=== PATIENT | female | born 1985 | race Caucasian/White ===

== ENCOUNTER 2021-06-21 22:36 | Inpatient (IN) | payer BC, SELFPAY ==
[2021-06-21 22:53] VITALS: BP 95/63; PULSE 120; RESP 18; TEMP 36.9; O2SAT 92; BMI 24.0
[2021-06-21 23:12] VITALS: BP 99/65; PULSE 118; RESP 18; O2SAT 92
[2021-06-21 23:50] VITALS: O2SAT 96
--- NOTE | 2021-06-21 23:52 | ECG_ITS ---
[facility] Test Date: 2021-06-22 Pat Name: Tiffanie Vallejo Department: Room: Gender: Female Certified Surgical Technician: : 1985 Requested By: Austin Greene Order Number: [id number] Diana MD: Hilario Solis M.D. Measurements Intervals [place] Rate: 118 P: 38 VT: 121 QRS: 44 QRSD: 77 T: 32 QT: 312 QTc: 438 Interpretive Statements SINUS TACHYCARDIA ABNORMAL RHYTHM ECG No previous ECG available for comparison Electronically Signed On 06-23-2021 16:22:48 CDT by Hilario Solis M.D. [email or web address].[employer]/store/OV/[id number]
--- NOTE | 2021-06-21 23:52 | XRR_ITS ---
PROCEDURE INFORMATION: Exam: XR Chest Exam date and time: 06/21/2021 11:52 PM Age: 36 years old Clinical indication: Shortness of breath; Additional info: SOB TECHNIQUE: Imaging protocol: XR of the chest. Views: 1 view. COMPARISON: No relevant prior studies available. FINDINGS: Tubes, catheters and devices: Right-sided PICC line with tip approaching the atrial caval junction. Lungs: Large right pleural effusion with right mid to lower lung field infiltrate. Pleural spaces: See Lungs finding. Heart/Mediastinum: Unremarkable. No cardiomegaly. Bones/joints: Unremarkable. XR/XR chest 1V portable [id number] IMPRESSION: 1. Large right pleural effusion with right mid to lower lung field infiltrate. 2. Right-sided PICC line with tip approaching the atrial caval junction.
[2021-06-22] VITALS (13 sets, daily range): BP systolic 83–108; BP diastolic 48–72; PULSE 95–116; RESP 16–32; TEMP 36.7–37.7; O2SAT 92–97
--- NOTE | 2021-06-22 00:03 | W.ED.COVID ---
HPI - COVID General: Chief Complaint: COVID symptoms Stated Complaint: sob, possible pneumonia,covid positive Time Seen by Provider: 06/21/21 23:12 Triage information: Has fever, cough or shortness of breath. Exposure to COVID + person last 14 days History of Present Illness: HPI Narrative: 36-year-old female, with known COVID-19. She presents with a PICC line in her right arm. She says that she has been to the hospital in [facility], and left the ER there once, she then presented to [facility] in [place] earlier this week, and left that hospital as well. She was hospitalized 2 to 3 days ago again at [facility], and left there yesterday. She reports right-sided back and chest pain, shortness of breath, and some continued cough. Her last fever was 3 to 4 days ago. She is on day 12-14 of symptoms. MD complaint: known COVID positive Prior covid testing: yes, results known COVID 19 common symptoms: positive cough, dyspnea, fatigue, body aches, headache(s), nasal congestion, nausea and vomiting (Now resolved) COVID 19 other sytmptoms: positive chest pain; negative requiring oxygen, respiratory distress or confusion Onset (ago): day(s) (12-14) COVID Results: No Data to Display Review of Systems Const: Reports: body aches and fatigue ENMT: Reports: nasal congestion Card: Reports: chest pain Resp: Reports: dyspnea GI: Reports: nausea and vomiting (Now resolved) Neuro: Reports: headache(s); Denies: confusion Physical Exam Const: COMMON NORMALS: patient oriented x3 and alert GENERAL APPEARANCE: cooperative, anxious and ill appearing HENMT: COMMON NORMALS: normocephalic HEAD & SCALP: normocephalic FACE & SINUS: sinuses nontender Eye: COMMON NORMALS: Equal, round and reactive pupils present and EOMs intact bilaterally PUPIL: Yes Equal, round and reactive pupils present Chest: COMMONS NORMALS: normal inspection of the chest Resp: COMMON NORMALS: normal respiratory effort, No use of accessory muscles and clear to auscultation bilaterally AUSCULTATION: clear to auscultation bilaterally Cardio: COMMON NORMALS: regular rhythm RATE: tachycardic RHYTHM: regular rhythm HEART SOUNDS: no murmurs Neuro: COMMON NORMALS: patient oriented x3 SENSORIUM/ORIENTATION: Yes alert Course Consultations: Consultation #1: david Vital Signs: Vital signs: Vital Signs Temperature 99.8 F H 06/22/21 02:00 Pulse Rate 111 H 06/22/21 02:00 Respiratory Rate 16 06/22/21 03:43 Blood Pressure 93/62 06/22/21 02:00 Pulse Oximetry 97 06/22/21 03:43 MDM - COVID MDM Narrative: Medical decision making narrative: 36-year-old female with right-sided pleuritic chest pain, continued fever, tachycardia. She appears quite ill. Her white blood cell count is 25.6. Her CRP is 230. She is tachycardic in the 120s. She is febrile. She meets sepsis criteria. She has a dense lower lobe right pneumonia with left lower lobe pneumonia. CTA confirms. She did test positive for Covid, but this was 12 days ago. This appears to be a consolidative bacterial type pneumonia that likely came as a superinfection. She is received Levaquin and vancomycin here, as she has been an inpatient for a couple of days at a different facility. She will be admitted for pneumonia with sepsis. Lab Data: Labs: Lab Results 06/21/21 06/21/21 06/21/21 Range/Units 00:21 00:21 00:21 WBC 25.6 H (4.0-10.0) 10^3/ uL RBC 3.58 L (4.1-5.3) 10^6/u L Hgb 10.2 L (11.5-15.3) g/dL Hct 30.4 L (37.0-47.0) % MCV 84.9 (81-99) fl MCH 28.5 (28.0-34.0) pg MCHC 33.6 (30.0-36.0) g/dL RDW 13.5 (12.1-15.1) % Plt Count 308 (130-400) 10^3/c mm MPV 10.2 (7.4-10.4) fL Neut % (Auto) 89.2 % Lymph % (Auto) 3.8 % Warren % (Auto) 3.2 % Eos % (Auto) 0.1 % Baso % (Auto) 0.0 % Neut # (Auto) 22.84 H (1.8-7.7) 10^3/u L Lymph # (Auto) 1.0 (0.8-4.8) 10^3/u L Warren # (Auto) 0.8 (0.2-0.9) 10^3/u L Eos # (Auto) 0.0 (0.0-0.8) 10^3/u L Baso # (Auto) 0.0 (0.0-0.1) 10^3/u L Nucleated RBC % (a uto) 0 % Nucleated RBCs # 0.0 /100WBC D-Dimer 2.33 H (0-0.59) ug/mIFE U Sodium 134 L (136-145) mmol/L Potassium 4.1 (3.5-5.1) mmol/L Chloride 101 (98-107) mmol/L Carbon Dioxide 22 (22-29) mmol/L Anion Gap 15.1 (5-19) BUN 12 (6-20) mg/dL Creatinine 0.4 L (0.5-0.9) mg/dL GFR Calculation 181.6 H (90-130) mL/min Glucose 106 (65-115) mg/dL Calculated Osmolal ity 278 L (285-295) mOsm/k g Lactic Acid (0.5-2.2) mmol/L Calcium 7.4 L (8.5-10.5) mg/dL Total Bilirubin 1.4 H (0.15-1.2) mg/dL AST 44 H (0-32) U/L ALT 25 (0-33) U/L Alkaline Phosphata se 99 (35-105) IU/L Lactate Dehydrogen ase 484 H (135-214) U/L C-Reactive Protein 232.6 H (0.0-4.9) mg/L NT-Pro-B Natriuret Pep 4533 H (0-125) pg/mL Total Protein 5.4 L (6.6-8.7) g/dL Albumin 2.3 L (3.5-5.2) g/dL Globulin 3.1 (1.3-4.6) g/dL Procalcitonin 3.90 H (0-0.5) ng/mL HCG, Qual (Negative) 06/21/21 06/22/21 Range/Units 00:21 00:21 WBC (4.0-10.0) 10^3/ uL RBC (4.1-5.3) 10^6/u L Hgb (11.5-15.3) g/dL Hct (37.0-47.0) % MCV (81-99) fl MCH (28.0-34.0) pg MCHC (30.0-36.0) g/dL RDW (12.1-15.1) % Plt Count (130-400) 10^3/c mm MPV (7.4-10.4) fL Neut % (Auto) % Lymph % (Auto) % Warren % (Auto) % Eos % (Auto) % Baso % (Auto) % Neut # (Auto) (1.8-7.7) 10^3/u L Lymph # (Auto) (0.8-4.8) 10^3/u L Warren # (Auto) (0.2-0.9) 10^3/u L Eos # (Auto) (0.0-0.8) 10^3/u L Baso # (Auto) (0.0-0.1) 10^3/u L Nucleated RBC % (a uto) % Nucleated RBCs # /100WBC D-Dimer (0-0.59) ug/mIFE U Sodium (136-145) mmol/L Potassium (3.5-5.1) mmol/L Chloride (98-107) mmol/L Carbon Dioxide (22-29) mmol/L Anion Gap (5-19) BUN (6-20) mg/dL Creatinine (0.5-0.9) mg/dL GFR Calculation (90-130) mL/min Glucose (65-115) mg/dL Calculated Osmolal ity (285-295) mOsm/k g Lactic Acid 1.3 (0.5-2.2) mmol/L Calcium (8.5-10.5) mg/dL Total Bilirubin (0.15-1.2) mg/dL AST (0-32) U/L ALT (0-33) U/L Alkaline Phosphata se (35-105) IU/L Lactate Dehydrogen ase (135-214) U/L C-Reactive Protein (0.0-4.9) mg/L NT-Pro-B Natriuret Pep (0-125) pg/mL Total Protein (6.6-8.7) g/dL Albumin (3.5-5.2) g/dL Globulin (1.3-4.6) g/dL Procalcitonin (0-0.5) ng/mL HCG, Qual Negative (Negative) COVID Results: No Data to Display Coding Level of Care Code ED Portrait Artist for Chg Fwd Exam Detailed
--- NOTE | 2021-06-22 00:11 | CTR_ITS ---
PROCEDURE INFORMATION: Exam: CTA Chest With Contrast Exam date and time: 06/22/2021 12:11 AM Age: 36 years old Clinical indication: Cough and shortness of breath; Patient HX: RT chest wall pain. Cough/sob. Covid +; Additional info: Chest pain TECHNIQUE: Imaging protocol: Computed tomographic angiography of the chest with contrast. 3D rendering (Not supervised by radiologist): MIP and/or 3D reconstructed images were created by the technologist. Radiation optimization: All CT scans at this facility use at least one of these dose optimization techniques: automated exposure control; mA and/or kV adjustment per patient size (includes targeted exams where dose is matched to clinical indication); or iterative reconstruction. Contrast material: OMNI 350; Contrast volume: 80 ml; Contrast route: INTRAVENOUS (IV); COMPARISON: CR (CHEST, ) 06/21/2021 11:57 PM RADIATION DOSE METRICS: Total DLP (mGy-cm): 484.48 FINDINGS: Pulmonary arteries: No pulmonary embolus or aortic dissection. Aorta: Unremarkable. No aortic aneurysm. No aortic dissection. Lungs: Right lower lobe lobar pneumonia with aeration only small portions of the right lower lobe. Focal prominent airspace disease in the left lower lobe consistent with [id number] left posterior lung base pneumonia. Pleural spaces: Unremarkable. No pneumothorax. No pleural effusion. Heart: Unremarkable. No cardiomegaly. No pericardial effusion. Lymph nodes: Unremarkable. No enlarged lymph nodes. Bones/joints: Unremarkable. No acute fracture. Soft tissues: Unremarkable. CT/CT angio chest PE protcl [id number] IMPRESSION: 1. Right lower lobe lobar pneumonia with aeration only small portions of the right lower lobe. 2. Focal prominent airspace disease in the left lower lobe consistent with osal-as-[id number] left posterior lung base pneumonia. 3. No pulmonary embolus or aortic dissection. Radiation Dose CTDIVOL = (mGy): DLP = 484.48 (mGy-cm)
[2021-06-22] MEDS: morphine 4 mg/mL SDV 1 mL IVP ×2 (00:15→03:43)
[2021-06-22] MEDS: sodium chloride 0.9% 1,000 ML 999 ML IV ×2 (00:25→04:17)
[2021-06-22] MEDS: levofloxacin-dextrose 5 % 750 MG/150 ML PREMIX 100 MG IV (00:31)
[2021-06-22 00:32] LABS: Eosinophils % 0.1 %; Hematocrit 30.4 % (37.0-47.0); Hemoglobin 10.2 g/dL (11.5-15.3); Lymphocytes % 3.8 %; Mean Corpuscular HGB Conc 33.6 g/dL (30.0-36.0); Mean Corpuscular Hemoglobin 28.5 pg (28.0-34.0); Mean Corpuscular Volume 84.9 fl (81-99); Mean Platelet Volume 10.2 fL (7.4-10.4); Monocytes # 0.8 10^3/uL (0.2-0.9); Monocytes % 3.2 %; Neutrophils # 22.84 10^3/uL (1.8-7.7); Neutrophils % 89.2 %; Nucleated Red Blood Cells % 0 %; Platelet Count 308 10^3/cmm (130-400); Red Blood Count 3.58 10^6/uL (4.1-5.3); Red Cell Distribution Width 13.5 % (12.1-15.1); White Blood Count 25.6 10^3/uL (4.0-10.0)
[2021-06-22 00:45] LABS: D Dimer 2.33 ug/mIFEU (0-0.59)
[2021-06-22 00:49] LABS: HCG, Serum Qual Negative (Negative)
[2021-06-22 00:53] LABS: Lactic Sepsis W/Reflex 1.3 mmol/L (0.5-2.2)
[2021-06-22 01:01] LABS: Slide Review Slide Review Perform
[2021-06-22 01:03] LABS: NT Pro B Type Natriuretic Pept 4533 pg/mL (0-125)
[2021-06-22 01:15] LABS: Alanine Aminotransferase 25 U/L (0-33); Albumin Level 2.3 g/dL (3.5-5.2); Alkaline Phosphatase 99 IU/L (35-105); Anion Gap 15.1 (5-19); Aspartate Amino Transferase 44 U/L (0-32); Blood Urea Nitrogen 12 mg/dL (6-20); C Reactive Protein 232.6 mg/L (0.0-4.9); Calcium 7.4 mg/dL (8.5-10.5); Carbon Dioxide 22 mmol/L (22-29); Chloride 101 mmol/L (98-107); Globulin 3.1 g/dL (1.3-4.6); Glomerular Filtration Rate 181.6 mL/min (90-130); Glucose 106 mg/dL (65-115); Lactate Dehydrogenase 484 U/L (135-214); Osmolality Calculated 278 mOsm/kg (285-295); Potassium 4.1 mmol/L (3.5-5.1); Sodium 134 mmol/L (136-145); Total Bilirubin 1.4 mg/dL (0.15-1.2); Total Protein 5.4 g/dL (6.6-8.7)
[2021-06-22] MEDS: iohexol 350 mg/mL 100 mL Btl IV (02:23)
--- NOTE | 2021-06-22 03:08 | PC.NURSE ---
Checked in on pt. She is sleeping comfortably in bed.
[2021-06-22] MEDS: vancomycin 1,000 MG in sodium chloride 0.9% 250 ML 250 MG IV ×2 (03:47→13:10)
--- NOTE | 2021-06-22 05:19 | PM.HP ---
Providers/Chief Complaint Admitting Physician: Shruthi Payan MD Primary Care Provider: Rahel Lopez Chief Complaint: sob, possible pneumonia,covid positive History of Present Illness Tiffanie Vallejo is a 36 year old female problems with COVID-19 pneumonia 12 days ago, she was recently admitted at hospitals in [place] hand at [facility] in [place], where she left AMA as she was distressed with inadequate pain control. She stayed in each place for 2 days is her estimate. States she did not get steroids or remdesivir, did not require oxygen. She had been having daily fever until 4 days ago . Her chief persistent complaint at this time is right-sided chest pain which brought her to the hospital. Appears to be pleuritic in nature, worsened with deep breathing. Also complains of cough with productive sputum, yellow-green in color with occasional blood streaking. Has a past history of IV drug use, uses IV morphine, last taken 1 month ago. Of note she has a PICC line in place from her last hospital admission. She is unvaccinated. Review of Systems General: Reports: 10 or more systems reviewed and unremarkable except in HPI and below Const: Denies: fever(s), chills or body aches Eyes: Denies: change in vision, blurry vision or photophobia ENMT: Reports: hoarseness; Denies: throat pain, enlarged tonsils, odynophagia or nasal congestion Card: Denies: chest pain, palpitations, irregular heart rhythm, edema, swelling of feet/ankles, lightheadedness, pre-syncope, dyspnea on exertion or orthopnea Resp: Denies: dyspnea, productive cough, non-productive cough, wheezing, stridor, pain on inspiration, change in phlegm color, hemoptysis or chest congestion GI: Denies: abdominal pain, nausea, vomiting, hematemesis, coffee ground emesis, dysphagia, heartburn, diarrhea, constipation, GI cramping, change in stool character, hematochezia or melena : Denies: flank pain, difficulty voiding, dysuria, urinary frequency, urinary urgency, urinary hesitancy or hematuria Musc: Denies: neck pain, back pain, extremity pain, joint swelling, joint warmth or deformity Neuro: Denies: headache(s), numbness in extremities, weakness in extremities, sensory changes, difficulty walking, frequent falls, dizziness, vertigo, behavioral changes, Slurred speech present or seizure-like activity Psych: Denies: anxiety, depression, suicidal ideation or homicidal ideation Endo: Denies: polyuria, polydipsia, tired all the time, cold intolerance or hot flashes [place]/Lymph: Denies: easy bruising or easy bleeding Medications/Allergies Allergies Allergy/AdvReac Type Severity Reaction Status Date / Time erythromycin base Allergy ADR-Vomitin Verified 06/22/21 02:50 g Vitals/I&O/Wt Last Vital Signs Temp 99.8 F H 06/22/21 02:00 Pulse 111 H 06/22/21 02:00 Resp 16 06/22/21 03:43 BP 93/62 06/22/21 02:00 Pulse Ox 97 06/22/21 03:43 Weight last 48 hrs Weight 63.503 kg Physical Exam Narrative: EXAM NARRATIVE: General: No acute distress, AO x3 HEENT: PERRLA, pupils bilaterally equal and reactive, pallors not present Chest: Normal vesicular breath sounds, no added sounds, equal good air entry bilaterally CVS: S1-S2 regular, no murmurs, no tachycardia, no gallops, no rubs Abdomen: Soft, nontender, no organomegaly, bowel sounds present Neuro: No focal deficits, no facial deformity, AO x3, power 5/5 in all limbs Extremities: no clubbing, edema or cyanosis Data : 06/21/21 00:21 06/21/21 00:21 Micro: Microbiology 06/22/21 00:31 Blood Culture - Preliminary Blood SPECIMEN COLLECTED 06/22/21 00:21 Blood Culture - Preliminary Blood SPECIMEN COLLECTED A&P Assessment and plan (1) Sepsis: Meets criteria by way of leukocytosis, tachycardia, fever, source of infection Sepsis secondary to pneumonia, as a result of COVID-19 infection, and also likely superimposed bacterial pneumonia given right lower lobe consolidation. Empiric coverage with Zosyn and vancomycin, choosing antibiotics with broader coverage as patient has recently been in and out of multiple hospitals. Pending blood culture, has PICC line in place, no signs of local infection evident at site at this present time. IV fluids bolus given in the ER, continue normal saline at 75 cc an hour As needed morphine and Percocet for pleuritic chest pain control Uncertain if patient received remdesivir and dexamethasone at her previous hospitals. She is currently not requiring any supplemental oxygen and according to patient has not required this during her previous hospital stay. However given lower respiratory involvement and elevated CRP at 232, will initiate dexamethasone. No clear benefit to adding remdesivir at this time given that patient is already 12 to 14 days since her diagnosis of Covid. We will try to obtain records from outside. Urine bacterial and Legionella antigens, sputum culture. Status: Acute Qualifiers: Sepsis type: sepsis due to unspecified organism Sepsis acute organ dysfunction status: without acute organ dysfunction Qualified Code(s): A41.9 - Sepsis, unspecified organism (2) COVID-19: Status: Acute (3) Pneumonia: Status: Acute Qualifiers: Pneumonia type: due to unspecified organism Laterality: right Lung location: lower lobe of lung Qualified Code(s): J18.9 - Pneumonia, unspecified organism Additional A&P Information DVT prophylaxis: Lovenox Full code PUD prophylaxis Protonix 40 mg p.o. daily Attestations Medical Necessity Statement*: Greater than 2 midnight admission anticipated for management of sepsis, pneumonia, IV antibiotics and fluids Coding Level of Care Code Acute Health And Wellness Coach for [facility] Fwd Diagnoses Sepsis A41.9 Sepsis type: sepsis due to unspecified organism Sepsis acute organ dysfunction status: without acute organ dysfunction COVID-19 U07.1 Pneumonia J18.9 Pneumonia type: due to unspecified organism Laterality: right Lung location: lower lobe of lung
[2021-06-22] MEDS: enoxaparin 40 mg/0.4 mL Syringe SUBCUT (06:06)
[2021-06-22] MEDS: dexamethasone 4 mg/mL INJ 6 MG IVP (06:06)
[2021-06-22 06:29] LABS: Amphetamines Screen Urine Positive (Negative); Barbiturates Screen Urine Negative (Negative); Benzodiazepines Screen Urine Positive (Negative); Cocaine Screen Urine Negative (Negative); Opiate Screen Urine Positive (Negative); PCP Screen Urine Negative (Negative); THC Screen Urine Positive (Negative)
[2021-06-22] MEDS: azithromycin 500 MG in sodium chloride 0.9% 250 ML 250 MG IV (06:42)
--- NOTE | 2021-06-22 09:36 | USCV_ITS ---
Tiffanie Vallejo Age: 36 Gender: F : 1985 Exam Date: 06/22/2021 14:42 Ordering Phys: Jonathan Soler MD Technologist: Tiffanie Lanier Exam Location: [facility] [place] Indication: IV drug user, came in with picc line, has PNA and covid BP: 102 / 55 HR: 88 Rhythm: Sinus Technical Quality: Suboptimal MEASUREMENTS (Male / Female) Normal Values 2D ECHO LV Diastolic Diameter PLAX 3.7 cm 4.2 - 5.9 / 3.9 - 5.3 cm LV Systolic Diameter PLAX 2.1 cm LV Chamber Size 3.4 cm IVS Diastolic Thickness 1.5 cm 0.6 - 1.0 / 0.6 - 0.9 cm IVS Systolic Thickness 1.3 cm LVPW Diastolic Thickness 0.8 cm 0.6 - 1.0 / 0.6 - 0.9 cm LVPW Systolic Thickness 1.2 cm RV Chamber Size 2.5 cm LVOT Diameter 1.9 cm LV Ejection Fraction 2D Teich 74.7 % LV Ejection Fraction MOD 2C 57.3 % LV Ejection Fraction 2C AL 60.7 % LA Diameter 2.8 cm LA Width 3.2 cm LA Height 4.1 cm RA Width 2.7 cm RA Height 4.1 cm Aorta at Sinotubular Diameter 2.2 cm M-MODE LV Diastolic Diameter MM 4.8 cm 4.2 - 5.9 / 3.9 - 5.3 cm LV Systolic Diameter MM 2.9 cm LV Ejection Fraction MM Teich 69.1 % IVS Diastolic Thickness MM 0.7 cm 0.6 - 1.0 / 0.6 - 0.9 cm IVS Systolic Thickness MM 0.9 cm LVPW Diastolic Thickness MM 1.1 cm 0.6 - 1.0 / 0.6 - 0.9 cm LVPW Systolic Thickness MM 1.3 cm RV Diastolic Diameter MM 1.3 cm Aortic Annulus Diameter 2.5 cm LA Ao Ratio MM 1.3 MV E Point Septal Separation 0.5 cm DOPPLER AV Peak Velocity 132.0 cm/s LVOT Peak Velocity 118.0 cm/s AV Area Cont Eq vti 2.5 cm squared AV Area Cont Eq pk 2.5 cm squared MV Area PHT 5.0 cm squared Mitral E to A Ratio 1.3 MV E' Velocity 54.5 cm/s Mitral E to MV E' Ratio 6.5 Mitral E to LV E' Lateral Ratio 5.2 Mitral E to LV E' Septal Ratio 8.8 TR Peak Velocity 217.7 cm/s TR Peak Gradient 19.0 mmHg TV Peak E Velocity 66.0 cm/s Right Atrial Pressure 3.0 mmHg Pulmonary Artery Systolic Pressu 22.0 mmHg PV Peak Velocity 91.0 cm/s RV Acceleration Time 0.1 s RV Ejection Time 0.2 s RV AcT/ET 0.4 FINDINGS Left Ventricle Normal left ventricular size and systolic function, EF 62 %. No regional wall motion abnormalities. Right Ventricle The right ventricle is normal in size and function. Right Atrium The right atrium is normal in size. Left Atrium The left atrium is normal in size. Mitral Valve Trace to mild mitral valve regurgitation. The anterior mitral leaflet appears to be mildly thickened Aortic Valve No gross abnormalities noted Tricuspid Valve Mild tricuspid valve regurgitation. The valve has no obvious masses or vegetations Pulmonic Valve No gross abnormalities noted Pericardium Normal pericardium without effusion. Aorta Normal ascending aorta dimension. CONCLUSIONS Normal left ventricular size and systolic function, EF 62 %. No regional wall motion abnormalities. The anterior mitral leaflet appears to be mildly thickened. Trace to mild mitral valve regurgitation. Mild tricuspid valve regurgitation. No masses or vegetations were noted on this valve There is no pericardial effusion. There are no intracardiac masses. There are no prior echocardiogram studies to compare. Consider DONN, if clinically indicated Dr Hilario Solis MD FACC (Electronically Signed) Final Date: 23 June 2021 10:12 S
--- NOTE | 2021-06-22 09:38 | ECG_ITS ---
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 Measurements Intervals [place] Rate: 98 P: 46 GA: 130 QRS: 37 QRSD: 77 T: 36 QT: 341 QTc: 437 Interpretive Statements SINUS RHYTHM Compared to ECG 06/22/2021 00:01:01 Poor R wave progression Sinus tachycardia no longer present Electronically Signed On 06-23-2021 16:24:20 CDT by Hilario Solis M.D. [email or web address] Systemsmerit health madisonAmalfi Semiconductorcommunity memorial hospitalKirax/store/OM/[id number]
[2021-06-22] MEDS: ipratropium-albuterol 3 mL Neb INHALATION ×2 (09:40→15:31)
--- NOTE | 2021-06-22 11:04 | PM.PN ---
Subjective Subjective: Interval history: This morning patient was seen, she tells me that she was discharged from [facility] with PICC line in place, due to difficult in IV access, denies that the PICC line was placed for long-term IV antibiotics, she does admit that she took morphine off the street through her PICC line yesterday, currently having back pain, no chest pain currently, denies fever, no shortness of breath Patient's PICC line was difficult to access, was not flushing, given her murmur, and her fevers, I advised the nurse to remove the PICC line, culture tip Vitals/I&O/Wt Last Vital Signs Temp 98.1 F 06/22/21 08:00 Pulse 105 H 06/22/21 09:50 Resp 20 H 06/22/21 09:40 BP 102/55 06/22/21 08:00 Pulse Ox 94 06/22/21 09:40 06/21/21 06/22/21 06/22/21 22:59 06:59 14:59 Intake Total 1400 / 1400 350 / 350 Balance 1400 / 1400 350 / 350 Weight last 48 hrs Weight 63.503 kg Physical Exam Const: COMMON NORMALS: no acute distress and patient oriented x3 Resp: COMMON NORMALS: normal respiratory effort, No retractions, No use of accessory muscles and clear to auscultation bilaterally AUSCULTATION: clear to auscultation bilaterally Cardio: COMMON NORMALS: regular rhythm, S1 normal heart sound present and S2 normal heart sound present RATE: tachycardic RHYTHM: regular rhythm HEART SOUNDS: S1 normal heart sound present, S2 normal heart sound present and Murmur heart sound present systolic GI: COMMON NORMALS: Normal to inspection, nondistended, normoactive bowel sounds present, Soft to palpation and non-tender PALPATION: Yes Soft to palpation Extremity: COMMON NORMALS: no pedal edema Neuro: COMMON NORMALS: patient oriented x3 Psych: COMMON NORMALS: mental status grossly normal Skin: NARRATIVE SKIN EXAM: PICC line in place, no surrounding erythema Data : 06/21/21 00:21 06/21/21 00:21 Micro: Microbiology 06/22/21 05:53 Legionella Urinary Antigen - Final Urine,Voided Bacterial Antigens - Final 06/22/21 00:31 Blood Culture - Preliminary Blood SPECIMEN COLLECTED 06/22/21 00:21 Blood Culture - Preliminary Blood SPECIMEN COLLECTED A&P Assessment and plan (1) Sepsis: Meets criteria by way of leukocytosis, tachycardia, fever, source of infection Sepsis secondary to bilateral lower lobe pneumonia pneumonia, as a result of COVID-19 infection, however given her PICC line, admittance of morphine use through the PICC line, and systolic murmur, and fevers, concerning for possible endocarditis Empiric coverage with Zosyn and vancomycin, azithromycin choosing antibiotics with broader coverage as patient has recently been in and out of multiple hospitals. Pending blood culture PICC line to be removed, culture tip Cardiac echocardiogram ordered IV fluids bolus given in the ER, continue normal saline at 75 cc an hour As needed morphine and Percocet for pleuritic chest pain control Uncertain if patient received remdesivir and dexamethasone at her previous hospitals. She is currently not requiring any supplemental oxygen and according to patient has not required this during her previous hospital stay. However given lower respiratory involvement and elevated CRP at 232, will initiate dexamethasone. No clear benefit to adding remdesivir at this time given that patient is already 12 to 14 days since her diagnosis of Covid. We will try to obtain records from outside. Urine bacterial and Legionella antigens, sputum culture. Plan for today remove PICC line, culture trip, continue antibiotics, cardiac echo, monitor respiratory status, monitor for fevers Status: Acute Qualifiers: Sepsis type: sepsis due to unspecified organism Sepsis acute organ dysfunction status: without acute organ dysfunction Qualified Code(s): A41.9 - Sepsis, unspecified organism (2) COVID-19: Status: Acute (3) Pneumonia: Status: Acute Qualifiers: Pneumonia type: due to unspecified organism Laterality: right Lung location: lower lobe of lung Qualified Code(s): J18.9 - Pneumonia, unspecified organism Additional A&P Information DVT prophylaxis: Lovenox Full code PUD prophylaxis Protonix 40 mg p.o. daily Attestations Medical Necessity Statement*: Patient requires hospitalization for sepsis secondary bilateral lobe pneumonia, COVID-19, possible endocarditis Coding Level of Care Code Acute [employer] for [facility] Diagnoses Sepsis A41.9 Sepsis type: sepsis due to unspecified organism Sepsis acute organ dysfunction status: without acute organ dysfunction COVID-19 U07.1 Pneumonia J18.9 Pneumonia type: due to unspecified organism Laterality: right Lung location: lower lobe of lung
[2021-06-22] MEDS: pantoprazole DR 40 mg Tablet PO (13:11)
[2021-06-22 14:38] LABS: Troponin(5th) Baseline 6 ng/L (0-10)
[2021-06-22] MEDS: piperacillin-tazobactam 3.375 GM in sodium chloride 0.9% (plus) 100 ML IV (15:28)
--- NOTE | 2021-06-22 15:38 | ECG_ITS ---
[facility] Test Date: 2021-06-22 Pat Name: Tiffanie Vallejo Department: Room: 202 Gender: Female [employer] Operator: : [id number] Requested By: Jonathan Soler Order Number: [id number] Diana MD: Hilario Solis M.D. Measurements Intervals [place] Rate: 103 P: 40 ID: [id number] QRS: 30 QRSD: 80 T: 32 QT: 347 QTc: 455 Interpretive Statements SINUS TACHYCARDIA ABNORMAL RHYTHM ECG Compared to ECG 06/22/2021 10:10:43 Sinus rhythm no longer present Electronically Signed On 06-23-2021 16:32:40 CDT by Hilario Solis M.D. [id number]
[2021-06-22 16:11] LABS: Troponin 5 2HR Delta 0 ABS# (0-10)
[2021-06-22 16:12] LABS: Erythrocyte Sedimentation Rate 75 mm/hr (0-15)
--- NOTE | 2021-06-22 17:31 | PC.NURSE ---
AT APPROX 1720, AUDIT MGR DISCUSSED ALL RISKS OF PT LEAVING AMA. PT AGREED, AND STATES UNDERSTANDING OF RISKS. PT STILL INSISTS ON LEAVING AMA. IV REMOVED, INTACT AND WELL TOLERATED. PT SIGNED AMA PAPER. DR. SMILEY NOTIFIED.
--- NOTE | 2021-06-27 12:18 | PC.SOCIAL ---
discharge follow up call made, unsuccessful.
== END 2021-06-22 18:00 | disposition home or self-care (01) | DRG 871 ==
LOC: ER 06-22 07:01 → MS 2A 06-22 07:07
PROVIDERS: Admitting Provider Student in an Organized Health Care Education/Training Program; Emergency Provider Emergency Medicine; PCP Nurse Practitioner Family; Visit Provider Family Medicine
DX: A41.89 Other specified sepsis (principal); U07.1 COVID-19; J12.82 Pneumonia due to coronavirus disease 2019; J15.9 Unspecified bacterial pneumonia
CPT/HCPCS: 71045; 71275; 80053; 80306; 83605; 83615; 83880; 84145; 84484; 84703; 85025; 85378; 85651; 86140; 86403; 87040; 87070; 87075; 87077; 87186; 87205; 87449; 93005; 93306; 94640; 96365; 96367; 96372; 96375; 96376; 99285; J0456; J1100; J1650; J1956; J2270; J2543; J3370; J7030; J7050; Q9967